=== PATIENT | female | born 1935 | race Two or more races ===

== ENCOUNTER 2018-12-13 00:49 | Inpatient (IN) | payer OTHER ==
[~2018-12-13] VITALS: Ht 162.6 cm; Wt 57.6 kg
[2018-12-13] MEDS ORDERED: BENICAR5 MG (01:09)
[2018-12-13] MEDS ORDERED: ZOLOFT25 MG (01:10)
== END 2018-12-18 11:14 | disposition home or self-care (01) | DRG 682 ==
LOC: ER 00:49 → SEC-K 11:44 → MEDJ 11:44
PROVIDERS: ADMIT Internal Medicine
PROC: BW24Y0Z Computerized Tomography (CT Scan) of Chest and Abdomen using Other Contrast, Unenhanced and Enhanced (ICD-10-PCS; principal; 2018-12-13)
PROC: B246ZZZ Ultrasonography of Right and Left Heart (ICD-10-PCS; 2018-12-13)
PROC: 4A12X4Z Monitoring of Cardiac Electrical Activity, External Approach (ICD-10-PCS; 2018-12-13)
PROC: 4A033R1 Measurement of Arterial Saturation, Peripheral, Percutaneous Approach (ICD-10-PCS; 2018-12-15)
PROC: 3E0F7GC Introduction of Other Therapeutic Substance into Respiratory Tract, Via Natural or Artificial Opening (ICD-10-PCS; 2018-12-15)
DX: N17.9 Acute kidney failure, unspecified (principal); R65.21 Severe sepsis with septic shock; N39.0 Urinary tract infection, site not specified; I95.89 Other hypotension; I10 Essential (primary) hypertension; F41.8 Other specified anxiety disorders; B96.29 Other Escherichia coli [E. coli] as the cause of diseases classified elsewhere; E86.0 Dehydration; E87.8 Other disorders of electrolyte and fluid balance, not elsewhere classified